=== PATIENT | female | born 1930 | race Caucasian/White ===

== ENCOUNTER → 2018-04-02 | Outpatient (CLI) | payer MEDICARE ==
--- NOTE | 2018-04-02 16:06 | CT ---
EXAMINATION TYPE: CT abdomen pelvis wo con DATE OF EXAM: 04/02/2018 COMPARISON: 04/10/2016 HISTORY: Right flank and abdominal pain. CT DLP: 1294.2 mGycm Examination of the solid and hollow viscera is limited given the lack of contrast. FINDINGS: LUNG BASES: Fixed hiatal hernia noted. No evidence for nodule. No evidence for infiltrate. LIVER/GB: The gallbladder surgically absent. No space-occupying hepatic lesion. PANCREAS: No pancreatic mass identified. No inflammatory process seen. SPLEEN: No evidence for splenomegaly. No intrasplenic lesions seen. ADRENALS: No adrenal nodules identified. No evidence for thickening. KIDNEYS: The right kidney is surgically absent. No evidence for renal mass. No nephrolithiasis. No hy dronephrosis. BOWEL: Appendix has a normal appearance. No evidence of bowel obstruction. No inflammatory process. Lymph nodes: No evidence for adenopathy greater than 1 cm. Abdominal aorta: Atheromatous changes seen. No evidence for aneurysm. Genital organs: No significant abnormality. Other: Fat-containing umbilical hernia. Severe degenerative changes lumbar spine. IMPRESSION: 1. Fat-containing umbilical hernia small in size. 2. Fixed hiatal hernia. 3. Right-sided nephrectomy changes.
== END ==
LOC: RADCTMAIN 13:22
PROVIDERS: ATTEND Internal Medicine
DX: K42.9 Umbilical hernia without obstruction or gangrene (principal); K44.9 Diaphragmatic hernia without obstruction or gangrene
CPT/HCPCS: 74176

== ENCOUNTER 2018-11-03 21:06 | Emergency (ER) | payer MEDICARE ==
[2018-11-03 21:29] VITALS: RESP 18
[2018-11-03] MEDS ORDERED: ONDANSETRON 4 MG/2 ML VIAL IVP STA (21:46)
[2018-11-03] MEDS ORDERED: SODIUM CHLORIDE 0.9% 500 ML 500 ML IV STA (21:46)
[2018-11-03] MEDS ORDERED: DICYCLOMINE 10 MG/ML 2 ML AMP IM STA (21:46)
[2018-11-03] MEDS ORDERED: SODIUM CHLORIDE 0.9% 1,000 ML IV STA (21:46)
[2018-11-03] MEDS ORDERED: FAMOTIDINE 20 MG/2 ML VIAL IV STA (21:46)
--- NOTE | 2018-11-03 21:51 | ED ---
General Adult HPI - General Chief complaint: Nausea/Vomiting/Diarrhea Stated complaint: NVD Time Seen by Provider: 11/03/18 21:35 Source: patient, family, RN notes reviewed Mode of arrival: ambulatory Limitations: no limitations - History of Present Illness Initial comments: Patient is a pleasant 88-year-old female presenting to the emergency department with nausea vomiting and diarrhea. Onset of symptoms was 48 hours ago. Patient has had several episodes of vomiting and diarrhea. Patient did have a couple episodes of dark diarrhea following Pepto-Bismol however color has returned to normal. Patient has had decreased appetite. Decreased oral intake. Patient did not take her medications today. Patient has continued nausea however has not vomited in many hours. Patient has some abdominal cramping at times. - Related Data Home Medications Medication Instructions Recorded Confirmed Aspirin 81 mg PO HS 12/04/13 11/03/18 Atenolol [Tenormin] 50 mg PO HS 12/04/13 11/03/18 Ergocalciferol [Vitamin D2 1 tab PO SUWE 12/04/13 11/03/18 (DRISDOL)] Ezetimibe [Zetia] 10 mg PO HS 12/04/13 11/03/18 Levothyroxine Sodium [Synthroid] 150 mcg PO HS 12/04/13 11/03/18 Tolterodine Tartrate [Detrol LA] 4 mg PO HS 12/04/13 11/03/18 Bumetanide [BUMEX] 2 mg PO HS 04/11/16 11/03/18 Cyanocobalamin (Vitamin B-12) 2,500 mcg PO HS 04/11/16 11/03/18 [Vitamin B-12] Diltiazem Cd [Cardizem Cd] 120 mg PO HS 04/11/16 11/03/18 HYDROcodone/APAP 7.5-325MG [[place] 1 tab PO Q6HR PRN 04/11/16 11/03/18 7.5-325] Multivitamins, Thera [Multivitamin] 1 tab PO DAILY 04/11/16 11/03/18 Potassium Chloride [Klor-Con 10] 10 meq PO HS 04/11/16 11/03/18 hydrOXYzine HCL 25 mg PO HS PRN 04/11/16 11/03/18 Allopurinol [Zyloprim] 100 mg PO DAILY 11/03/18 11/03/18 Meclizine [Antivert] 25 mg PO DAILY PRN 11/03/18 11/03/18 Previous Rx's Medication Instructions Recorded Dicyclomine [Bentyl] 20 mg PO QID #12 tablet 11/04/18 Ondansetron Odt [Zofran Odt] 4 mg PO Q8HR PRN #10 tab 11/04/18 Allergies Allergy/AdvReac Type Severity Reaction Status Date / Time adhesive Allergy Unknown Verified 11/03/18 21:40 latex Allergy Unknown Verified 11/03/18 21:40 Penicillins Allergy Unknown Verified 11/03/18 21:40 Review of Systems ROS Statement: Those systems with pertinent positive or pertinent negative responses have been documented in the HPI. ROS Other: All systems not noted in ROS Statement are negative. Constitutional: Denies: fever Eyes: Denies: eye pain ENT: Denies: ear pain Respiratory: Denies: cough Cardiovascular: Denies: as per HPI, chest pain Endocrine: Reports: fatigue Gastrointestinal: Reports: as per HPI, nausea, vomiting, diarrhea Genitourinary: Denies: dysuria Musculoskeletal: Denies: back pain Skin: Denies: rash Neurological: Denies: weakness Past Medical History Past Medical History: Cancer, Hyperlipidemia, Hypertension, Osteoarthritis (OA), Sleep Apnea/CPAP/BIPAP, Thyroid Disorder Additional Past Medical History / Comment(s): hiatal hernia, unexplained wt loss, hx colon, kidney, skin cancer History of Any Multi-Drug Resistant Organisms: None Reported Past Surgical History: Appendectomy, Bowel Resection, Cholecystectomy, Heart Catheterization, Orthopedic Surgery Additional Past Surgical History / Comment(s): LEFT AND RIGHT KNEE REPLACEMENT, CARPAL TUNNEL SURGERY BILATERAL HANDS, 4 CYSTS REMOVED FROM HANDS, RIGHT N EPHRECTOMY-1995, 2 COLON RESECTIONS, livan cataracts Past Anesthesia/Blood Transfusion Reactions: Motion Sickness Additional Past Anesthesia/Blood Transfusion Reaction / Comment(s): PT STATES ONE ANESTHETIC SHE COULD NOT WAKE UP- DAUGHTER STATES SHE HAD DURAMORPH and fentanyl Past Psychological History: Panic Disorder Smoking Status: Never smoker Past Alcohol Use History: None Reported Past Drug Use History: None Reported - Past Family History Mother Family Medical History: No Reported History Sister(s) Family Medical History: Deep Vein Thrombosis (DVT) General Exam Limitations: no limitations General appearance: alert, in no apparent distress Head exam: Present: atraumatic Eye exam: Present: normal appearance, PERRL ENT exam: Present: normal oropharynx Neck exam: Present: normal inspection Respiratory exam: Present: normal lung sounds bilaterally Cardiovascular Exam: Present: regular rate, normal rhythm Expanded Peripheral pulses: 2+: Dorsalis Pedis (R), Dorsalis Pedis (L) GI/Abdominal exam: Present: soft. Absent: tenderness Extremities exam: Present: normal inspection Neurological exam: Present: alert Psychiatric exam: Present: normal affect, normal mood Skin exam: Present: normal color Course Vital Signs 11/03/18 21:23 Temperature 97.9 F Pulse Rate 109 H Respiratory 18 Rate Blood Pressure 134/79 O2 Sat by Pulse 98 Oximetry Medical Decision Making - Medical Decision Making Patient reevaluated and resting comfortably in bed. Patient and family updated on results and plan. Renal Function is similar to previous results. - Lab Data Result diagrams: 11/03/18 22:22 11/03/18 22:22 Lab Results 11/03/18 11/03/18 Range/Units 22:22 22:22 WBC 3.6 L (3.8-10.6) k/uL RBC 4.86 (3.80-5.40) m/uL Hgb 13.8 (11.4-16.0) gm/dL Hct 41.9 (34.0-46.0) % MCV 86.2 (80.0-100.0) fL MCH 28.3 (25.0-35.0) pg MCHC 32.9 (31.0-37.0) g/dL RDW 14.7 (11.5-15.5) % Plt Count 202 (150-450) k/uL Neutrophils % (Manual) 48 % Band Neutrophils % 1 % Lymphocytes % (Manual) 36 % Monocytes % (Manual) 13 % Eosinophils % (Manual) 2 % Neutrophils # (Manual) 1.70 (1.3-7.7) k/uL Lymphocytes # (Manual) 1.30 (1.0-4.8) k/uL Monocytes # (Manual) 0.47 (0-1.0) k/uL Eosinophils # (Manual) 0.07 (0-0.7) k/uL Nucleated RBCs 0 (0-0) /100 WBC Manual Slide Review Performed Sodium 138 (137-145) mmol/L Potassium 3.8 (3.5-5.1) mmol/L Chloride 105 (98-107) mmol/L Carbon Dioxide 22 (22-30) mmol/L Anion Gap 11 mmol/L BUN 35 H (7-17) mg/dL Creatinine 1.45 H (0.52-1.04) mg/dL Est GFR (CKD-EPI)AfAm 38 (>60 ml/min/1.73 sqM) Est GFR (CKD-EPI)NonAf 33 (>60 ml/min/1.73 sqM) Glucose 137 H (74-99) mg/dL Calcium 9.2 (8.4-10.2) mg/dL Total Bilirubin 0.8 (0.2-1.3) mg/dL AST 38 H (14-36) U/L ALT 33 (9-52) U/L Alkaline Phosphatase 74 (38-126) U/L Total Protein 7.1 (6.3-8.2) g/dL Albumin 4.2 (3.5-5.0) g/dL Amylase 44 (30-110) U/L Lipase 137 (23-300) U/L Disposition Clinical Impression: Vomiting, Diarrhea Disposition: HOME SELF-CARE Condition: Stable Instructions (If sedation given, give patient instructions): Acute Nausea and Vomiting (ED), Acute Diarrhea (ED) Additional Instructions: Please follow-up with primary care physician in the next 2 for recheck. Please also follow-up with her kidney doctor. Return for not tolerating oral intake, pain, fever, worsening or changing symptoms or other concerns. Prescriptions: Dicyclomine [Bentyl] 20 mg PO QID #12 tablet Ondansetron Odt [Zofran Odt] 4 mg PO Q8HR PRN #10 tab PRN Reason: Nausea Is patient prescribed a controlled substance at d/c from ED?: No Referrals: Lonnie Tyler DO [Primary Care Provider] - 1-2 days Time of Disposition: 00:21
[2018-11-03 22:42] LABS: Albumin 4.2 g/dL (3.5-5.0); Calcium 9.2 mg/dL (8.4-10.2); Potassium 3.8 mmol/L (3.5-5.1); Total Bilirubin 0.8 mg/dL (0.2-1.3); Total Protein 7.1 g/dL (6.3-8.2)
[2018-11-03 22:51] LABS: HCT 41.9 % (34.0-46.0); HGB 13.8 gm/dL (11.4-16.0); MCH 28.3 pg (25.0-35.0); MCHC 32.9 g/dL (31.0-37.0); MCV 86.2 fL (80.0-100.0); Mean Platelet Volume 6.9; Platelet Count 202 k/uL (150-450); RBC 4.86 m/uL (3.80-5.40); RDW 14.7 % (11.5-15.5); WBC 3.6 k/uL (3.8-10.6)
[2018-11-03 23:51] LABS: Band Neutrophils % 1 %; Eosinophils # (M) 0.07 k/uL (0-0.7); Monocytes # (M) 0.47 k/uL (0-1.0); Neutrophils % (M) 48 %; Nucleated Red Blood Cells 0 /100 WBC (0-0); Total Cells Counted 100
[2018-11-04 00:56] LABS: Appearance,Urine Clear (Clear); Bilirubin,Urine Negative (Negative); Blood,Urine Negative (Negative); Color,Urine Yellow; Glucose,Urine (UA) Negative (Negative); Ketones,Urine Negative (Negative); Leukocyte Esterase,Urine Negative (Negative); Mucus,Urine Rare /hpf; Nitrite,Urine Negative (Negative); PH, Urine 5.5 (5.0-8.0); Protein,Urine 1+ (Negative); RBC,Urine 1 /hpf (0-5); Specific Gravity,Urine 1.021 (1.001-1.035); Squamous Epithelial Cell,Urine 3 /hpf (0-4); Urobilinogen,Urine <2.0 mg/dL (<2.0); WBC,Urine 1 /hpf (0-5)
[2018-11-04 01:05] VITALS: BP 128/75; PULSE 93; TEMP 98.4
== END 2018-11-04 01:14 | disposition home or self-care (01) ==
LOC: EC 21:06
DX: R11.2 Nausea with vomiting, unspecified (principal); R19.7 Diarrhea, unspecified; R19.8 Other specified symptoms and signs involving the digestive system and abdomen; E78.5 Hyperlipidemia, unspecified; I10 Essential (primary) hypertension; M19.90 Unspecified osteoarthritis, unspecified site; G47.30 Sleep apnea, unspecified; Z99.89 Dependence on other enabling machines and devices; E07.9 Disorder of thyroid, unspecified; F41.0 Panic disorder [episodic paroxysmal anxiety]; Z85.828 Personal history of other malignant neoplasm of skin; Z79.82 Long term (current) use of aspirin; Z79.890 Hormone replacement therapy; Z79.899 Other long term (current) drug therapy; Z88.0 Allergy status to penicillin; Z91.040 Latex allergy status; Z91.048 Other nonmedicinal substance allergy status; Z95.818 Presence of other cardiac implants and grafts; Z96.653 Presence of artificial knee joint, bilateral; Z90.49 Acquired absence of other specified parts of digestive tract
CPT/HCPCS: 36415; 80053; 82150; 83690; 85025; 99284; 96374; 96375; 96361 ×2; 96372; J0500; J2405; 81001

== ENCOUNTER → 2019-07-05 | Outpatient (CLI) | payer MEDICARE ==
--- NOTE | 2019-07-05 15:36 | CT ---
EXAMINATION TYPE: CT brain wo con DATE OF EXAM: 07/05/2019 COMPARISON: 05/08/2012 HISTORY: recent fall CT DLP: [address] of the brain was performed. The ventricles, basal cisterns and sulci overlying the cerebral convexities demonstrate mild enlargem ent. There is no evidence for intracranial hemorrhage or sulcal effacement. There is decreased attenuation about the periventricular white matter and deep white matter of both c erebral hemispheres, compatible with chronic small vessel ischemia. Differential diagnosis does inclu de demyelination. No mass effects are seen.No midline shift. Osseous calvarium is intact. If symptoms persist consider MRI. IMPRESSION: 1. Age related atrophic and chronic small vessel ischemic change without acute intracranial process s een at this time.
--- NOTE | 2019-07-05 16:12 | XR ---
EXAMINATION TYPE: XR shoulder complete RT DATE OF EXAM: 07/05/2019 COMPARISON: NONE HISTORY: 88-year-old female unspecified fall, initial encounter, right shoulder pain for 3 days. TECHNIQUE: 3 views FINDINGS: Moderate degenerative joint space narrowing with marginal spurring and capsular hypertrophy at the acromioclavicular joint. Bony irregularity at the greater tuberosity. Subacromial space is pr eserved. No acute fracture, subluxation, or dislocation is seen. IMPRESSION: 1. Moderate AC joint OA. 2. Bony changes along the greater tuberosity can be seen with chronic rotator cuff tendinopathy. If c oncern for rotator cuff tear, MRI can be performed. 3. No acute osseous abnormality seen.
== END | disposition home or self-care (01) ==
LOC: RADCTMAIN 14:56
PROVIDERS: ATTEND Internal Medicine Critical Care Medicine
DX: G31.1 Senile degeneration of brain, not elsewhere classified (principal); I67.82 Cerebral ischemia; M19.011 Primary osteoarthritis, right shoulder
CPT/HCPCS: 70450

== ENCOUNTER → 2019-08-20 | Outpatient (CLI) | payer MEDICARE ==
--- NOTE | 2019-08-20 16:24 | CT ---
EXAMINATION TYPE: CT abdomen pelvis wo con DATE OF EXAM: 08/20/2019 COMPARISON: 04/02/2018 HISTORY: Umbilical hernia pain. CT DLP: 2298 mGycm Automated exposure control for dose reduction was used. TECHNIQUE: Helical acquisition of images was performed from the lung bases through the pelvis. FINDINGS: LUNG BASES: Heart size is prominent. Atherosclerotic change aorta. There is a small hiatal hernia. LIVER/GB: Liver homogeneous. Surgical clips are noted in the right upper quadrant correlate for previ ous cholecystectomy. PANCREAS: No significant abnormality is seen. SPLEEN: No significant abnormality is seen. ADRENALS: No significant abnormality is seen. KIDNEYS: Correlate for previous right nephrectomy. No evidence of hydronephrosis or nephrolithiasis. Subcentimeter tiny nodules too small to characterize. ADENOPATHY: None visualized. OSSEOUS STRUCTURES: Hypertrophic and degenerative changes of the spine. Suspect multilevel canal abbie nosis. Grade 1 anterolisthesis L4 on L5. BOWEL: Diverticulosis of the colon. OTHER: Fat-containing umbilical hernia noted. IMPRESSION: 1. Small hiatal hernia. 2. Right nephrectomy changes. No hydronephrosis or nephrolithiasis on the left. There are subcentimet er nodules too small to characterize. 3. Fat-containing umbilical hernia stable relative to the prior exam. 4. Diverticulosis with no CT evidence of diverticulitis. 5. Cardiomegaly.
== END | disposition home or self-care (01) ==
LOC: RADCTMAIN 14:09
PROVIDERS: ATTEND Internal Medicine Critical Care Medicine
DX: K44.9 Diaphragmatic hernia without obstruction or gangrene (principal); K42.9 Umbilical hernia without obstruction or gangrene; K57.90 Diverticulosis of intestine, part unspecified, without perforation or abscess without bleeding; R10.84 Generalized abdominal pain; Z90.5 Acquired absence of kidney; Z88.0 Allergy status to penicillin; Z91.040 Latex allergy status; Z91.09 Other allergy status, other than to drugs and biological substances
CPT/HCPCS: 36415; 74176; 82565; 84520

== ENCOUNTER → 2020-06-09 | Outpatient (CLI) | payer MEDICARE ==
--- NOTE | 2020-06-09 14:18 | CT ---
EXAMINATION TYPE: CT abdomen pelvis wo con DATE OF EXAM: 06/09/2020 COMPARISON: 08/20/2019 HISTORY: Weight loss, nausea and cramping x [address] DLP: 1243.3 mGycm Examination of the solid and hollow viscera is limited given the lack of contrast. FINDINGS: LUNG BASES: No evidence for nodule. No evidence for infiltrate. Small fixed hiatal hernia. LIVER/GB: Cholecystectomy clips are in place. No space-occupying hepatic lesion. PANCREAS: No pancreatic mass identified. No inflammatory process seen. SPLEEN: No evidence for splenomegaly. No intrasplenic lesions seen. ADRENALS: No adrenal nodules identified. No evidence for thickening. KIDNEYS: No evidence for renal mass. No nephrolithiasis. No hydronephrosis. BOWEL: Appendix has a normal appearance. No evidence of bowel obstruction. No inflammatory process. Lymph nodes: No evidence for adenopathy greater than 1 cm. Abdominal aorta: Atheromatous changes seen. No evidence for aneurysm. Genital organs: No significant abnormality. Other: Postoperative changes lumbar spine. IMPRESSION: NO SIGNIFICANT ABNORMALITY TO ACCOUNT FOR THE PATIENT'S SYMPTOMS.
== END | disposition home or self-care (01) ==
LOC: RADCTMAIN 11:52
PROVIDERS: ATTEND Internal Medicine Critical Care Medicine
DX: R63.4 Abnormal weight loss (principal); Z88.0 Allergy status to penicillin; Z91.048 Other nonmedicinal substance allergy status; Z91.09 Other allergy status, other than to drugs and biological substances
CPT/HCPCS: 82565; 84520; 74176; 36415; Q9967

== ENCOUNTER → 2020-06-30 | Day surgery (SDC) | payer MEDICARE ==
[2020-06-29 11:15] VITALS: BMI 46.8
[~2020-06-30] MED LIST: LACTATED RINGERS 1,000 ML IV SCH; LIDOCAINE 1% (10MG/ML) FOR IV START INTRADERMA ONE; LIDOCAINE 1% INJ 10MG/ML (20 ML MDV) ONE; PROPOFOL 10 MG/ML 20 ML VIAL IV ONE
[2020-06-30 10:54] VITALS: TEMP 97.5
--- NOTE | 2020-06-30 12:08 | P.PCN ---
Date of Procedure: 06/30/20 Procedure(s) Performed: Brief history: Patient is a pleasant 89-year-old white female scheduled for an elective upper endoscopy as well as colonoscopy as a part of evaluation of GERD and prior history of colon cancer. Her last colonoscopy was 5 years Procedure performed: Esophagogastroduodenoscopy biopsy Colonoscopy with biopsy and snare polypectomy Preoperative diagnosis: GERD and history of colon cancer Anesthesia: MAC Procedure: After informed consent was obtained from the patient was brought into the endoscopy unit and IV sedation was administered by anesthesia under continuous monitoring. Initially upper endoscopy was done. The Olympus GF 160 video endoscope was inserted inserted into the mouth and esophagus intubated without any difficulty and was gradually advanced into the stomach and duodenum and carefully examined. The bulb and second part of the duodenum appeared normal. The scope was then withdrawn into the stomach adequately insufflated with air and upon careful examination the antrum and body, cardia and fundus appeared normal. The scope was then withdrawn into the esophagus. The GE junction was located at 40 cm to the incisors. It appeared regular with no erythema erosions or ulcerations. Rest of the esophagus appeared normal. Patient tolerated the procedure well. At this time the patient continued to remain sedation. Initial digital rectal examination was normal. Olympus CF 160 video colonoscope was then inserted into the rectum and gradually advanced to theright colon without any difficulty. Careful examination was performed as the scope was gradually being withdrawn. The prep was excellent. The ileocolic anastomosis normal. Mucosa of the, ascending colon, transverse colon, descending colon,appeared normal. In the sigmoid colon There was a 3 mm polyp that was removed by cold biopsy. In the proximal rectum there was a 1 cm removed by snare polypectomy. Rest of the sigmoid colon and rectum appeared normal. Scattered left-sided diverticulosis seen. The Retroflexion was performed in the rectum and no lesions were noted. Patient tolerated the procedure well. Impression: 1.Upper endoscopy revealed mild antral gastritis and small hiatal hernia 2.Colonoscopy revealed 3 mm; polyp status post removal by cold biopsy and a 5 mm proximal rectal polyp status post polypectomy and scattered sigmoid diverticulosis Recommendations: Findings of this examination were discussed with the patient as well as Her family. She was advised to follow with the biopsy results. I did not recommend any further screening colonoscopy because of her advanced age.
[2020-06-30 12:12] VITALS: RESP 17
[2020-06-30 12:20] VITALS: BP 140/73; PULSE 79
== END ==
LOC: ORWHC2ENDO 09:42
PROVIDERS: ATTEND Internal Medicine Gastroenterology
DX: K29.50 Unspecified chronic gastritis without bleeding (principal); K21.9 Gastro-esophageal reflux disease without esophagitis; K44.9 Diaphragmatic hernia without obstruction or gangrene; Z12.11 Encounter for screening for malignant neoplasm of colon; D12.8 Benign neoplasm of rectum; K57.30 Diverticulosis of large intestine without perforation or abscess without bleeding; Z85.038 Personal history of other malignant neoplasm of large intestine; Z98.0 Intestinal bypass and anastomosis status; Z79.899 Other long term (current) drug therapy; I10 Essential (primary) hypertension; E78.5 Hyperlipidemia, unspecified; G47.33 Obstructive sleep apnea (adult) (pediatric); Z85.828 Personal history of other malignant neoplasm of skin; Z91.040 Latex allergy status; Z88.0 Allergy status to penicillin; Z91.09 Other allergy status, other than to drugs and biological substances; N28.9 Disorder of kidney and ureter, unspecified; E07.9 Disorder of thyroid, unspecified; Z97.2 Presence of dental prosthetic device (complete) (partial); Z79.890 Hormone replacement therapy; Z79.891 Long term (current) use of opiate analgesic
CPT/HCPCS: 45385; 45380; 43239; 88305; J2001; J2704; 44389

== ENCOUNTER → 2021-10-30 | Outpatient (CLI) | payer MEDICARE | END | disposition home or self-care (01) | LOC: RADCTMAIN 12:59 | PROVIDERS: ATTEND Internal Medicine Critical Care Medicine | DX: R22.0 Localized swelling, mass and lump, head (principal) | CPT/HCPCS: 82565; 84520 ==